=== PATIENT | female | born 1980 | race African-American/Black ===

== ENCOUNTER 2016-09-26 01:20 | Inpatient (IN) | payer OTHER ==
[~2016-09-26] VITALS: Ht 157.5 cm; Wt 75.1 kg
[2016-09-26 02:31] LABS: ADD MIUA? YES; BILIRUBIN MODERATE; BLOOD LARGE; GLUCOSE (STRIP) NEGATIVE; KETONES >=80; LEUKOCYTES SMALL; NITRITE POSITIVE; PH, URINE 5.5 (5-8); PROTEIN (STRIP) >=300; SPECIFIC GRAVITY 1.032 (1.000-1.030)
[2016-09-26 02:32] LABS: COLOR BROWN ((YELLOW))
[2016-09-26 02:35] LABS: HEMATOCRIT 39.5 % (36.0-46.0); MCH 26.8 PG (29.0-34.0); MCHC 33.2 G/DL (30.0-36.0); MCV 80.8 FL (83-99); MEAN PLAT.VOLUME 9.9 uM^3 (9.5-12.4); PLATELET COUNT 429 K/uL (156-360); RBC DIS.WIDTH-CV 15.7 % (11.8-14.6); RBC DIS.WIDTH-SD 45.7 % (39-53); RED BLOOD COUNT 4.89 M/uL (3.80-5.20); WHITE BLOOD COUNT 20.8 K/uL (4.1-10.2)
[2016-09-26 02:43] LABS: CHLORIDE 101 mEq/L (99-109); SODIUM 138 mEq/L (136-147)
[2016-09-26 02:45] LABS: RED BLOOD CELLS TNTC /HPF (0-5)
[2016-09-26 02:45] LABS: GLUCOSE 80 mg/dL (70-99)
[2016-09-26 02:46] LABS: ANION GAP 22 MEQ/L (2-14)
[2016-09-26 02:46] LABS: BACTERIA RARE; CASTS NONE SEEN /LPF; CRYSTALS NONE SEEN; EPITHELIAL CELLS 1+; MUCUS NONE SEEN; UCUL ADDED? NO; WHITE BLOOD CELLS 0-5 /HPF (0-5)
[2016-09-26 02:48] LABS: SERUM ETHYL ALCOHOL < 10 mg/dL
[2016-09-26 02:49] LABS: GFR ESTIMATE (CALCULATED) > 59 mL/min/
[2016-09-26 02:50] LABS: UREA NITROGEN (BUN) 20 mg/dL (9-23)
[2016-09-26 02:52] LABS: LIPASE 7 U/L (1.0-51.0)
[2016-09-26 02:56] LABS: ICTOTEST NEGATIVE
[2016-09-26 02:59] LABS: QUANTITATIVE HCG < 4.0 MIU/ML
[2016-09-26 03:55] LABS: TOTAL BILIRUBIN 0.5 mg/dL (0.0-1.0)
[2016-09-26 03:56] LABS: ALKALINE PHOSPHATASE 75 IU/L (3-129)
[2016-09-26 03:58] LABS: DIRECT BILIRUBIN 0.2 mg/dL (0.0-0.3)
[2016-09-26 08:21] VITALS: BP 124/67
[2016-09-26 09:44] LABS: AMPHETAMINE NEGATIVE (500 ng/mL); BARBITURATES NEGATIVE (200 ng/mL); BENZODIAZEPINES PRESUMPTIVE POSITIVE (150 ng/mL); COCAINE NEGATIVE (150 ng/mL); INTERNAL CONTROLS VALID? YES; METHADONE NEGATIVE (200 ng/mL); METHAMPHETAMINE NEGATIVE (500 ng/mL); OPIATES (MORPHINE) NEGATIVE (100 ng/mL); OXYCODONE NEGATIVE (100 ng/mL); PHENCYCLIDINE PRESUMPTIVE POSITIVE (25 ng/mL); PROPOXYPHENE NEGATIVE (300 ng/mL); THC CANNABINOIDS PRESUMPTIVE POSITIVE (50 ng/mL); TRICYCLIC ANTIDEPRESSANTS NEGATIVE (300 ng/mL)
[2016-09-26 09:45] LABS: ADD MEDTOX COMMENT Y
[2016-09-26 10:23] LABS: BENZODIAZEPINES QUANT VALUE 0 NG/ML
[2016-09-26 10:25] LABS: BENZODIAZEPINES, URINE SCREEN Negative (200 ng/mL)
[2016-09-26 12:07] LABS: HEMATOCRIT 35.6 % (36.0-46.0); MCH 27.6 PG (29.0-34.0); MCHC 33.7 G/DL (30.0-36.0); MEAN PLAT.VOLUME 9.8 uM^3 (9.5-12.4); PLATELET COUNT 411 K/uL (156-360); RBC DIS.WIDTH-CV 15.6 % (11.8-14.6); RED BLOOD COUNT 4.34 M/uL (3.80-5.20); WHITE BLOOD COUNT 14.6 K/uL (4.1-10.2)
[2016-09-26 16:08] VITALS: BP 127/95
[2016-09-26] MEDS ORDERED: RISPERDAL2 MG PO (18:24)
[2016-09-26] MEDS ORDERED: RISPERIDONE1 MG PO (18:24)
[2016-09-26] MEDS ORDERED: LORAZEPAM1 MG PO (18:24)
[2016-09-26] MEDS ORDERED: NICOTINE PATCH1 EAC1 TD (18:24)
[2016-09-26] MEDS ORDERED: LAMICTAL25 MG PO (18:24)
[2016-09-26] MEDS ORDERED: BACTRIM,SEPT1 TABLET PO (18:24)
[2016-09-27 08:35] VITALS: BP 146/83
[2016-09-27 08:35] LABS: EOSINOPHIL (%) 0.7 % (0-5); EOSINOPHIL COUNT 0.1 K/uL (0-0.3); HEMATOCRIT 36.2 % (36.0-46.0); IMMATURE GRANULOCYTE (%) 0.2 % (0.0-0.7); MCH 26.8 PG (29.0-34.0); MCHC 32.9 G/DL (30.0-36.0); MCV 81.5 FL (83-99); MEAN PLAT.VOLUME 9.7 uM^3 (9.5-12.4); MONOCYTE (%) 10.8 % (3-12); MONOCYTE COUNT 1.2 K/uL (0-0.8); NEUTROPHIL (%) 69.4 % (45-76); NEUTROPHIL COUNT 7.5 K/uL (1.8-6.4); PLATELET COUNT 414 K/uL (156-360); RBC DIS.WIDTH-CV 15.8 % (11.8-14.6); RBC DIS.WIDTH-SD 46.6 % (39-53); RED BLOOD COUNT 4.44 M/uL (3.80-5.20); WHITE BLOOD COUNT 10.8 K/uL (4.1-10.2)
== END 2016-09-27 11:27 | disposition home or self-care (01) | DRG 690 ==
LOC: EME 01:20 → 5EAST 04:05 → EDOF 04:05 → 5EAST 04:54
PROVIDERS: Emergency Medicine; Internal Medicine
DX: N39.0 Urinary tract infection, site not specified (principal); F31.2 Bipolar disorder, current episode manic severe with psychotic features; E87.3 Alkalosis; F91.9 Conduct disorder, unspecified; F12.10 Cannabis abuse, uncomplicated; F17.210 Nicotine dependence, cigarettes, uncomplicated; F16.10 Hallucinogen abuse, uncomplicated
CPT/HCPCS: 74176; 80048; 80076; 81003; 83605; 83690; 84702; 84999; 85025; 85027; 87040; 99281; 99285; G0008; G0480; J0692; J7050

== ENCOUNTER 2018-01-20 05:13 | Emergency (ER) | payer OTHER ==
[~2018-01-20] VITALS: Ht 157.5 cm; Wt 77.7 kg
[~2018-01-20 05:13] MED LIST: BACTRIM,SEPT1 TABLET PO; LAMICTAL25 MG PO; LORAZEPAM1 MG PO; NICOTINE PATCH1 EAC1 TD; RISPERDAL2 MG PO; RISPERIDONE1 MG PO
[2018-01-20] MEDS ORDERED: PEN-VEE K,VEET500 MG PO (06:29)
[2018-01-20] MEDS ORDERED: INDOCIN50 MG PO (06:29)
[2018-01-20 06:44] VITALS: BP 143/94
== END 2018-01-20 06:46 | disposition home or self-care (01) ==
LOC: EME 05:13
DX: K04.7 Periapical abscess without sinus (principal)
CPT/HCPCS: 99281; 99284